=== PATIENT | male | born 1970 ===

== ENCOUNTER → 2025-01-01 10:10 | Outpatient (REF) | payer BC, SELFPAY | LOC: RAD 10:10 | PROVIDERS: ATTENDING PHYSICIAN Student in an Organized Health Care Education/Training Program; FAMILY PHYSICIAN Family Medicine | DX: L40.9 Psoriasis, unspecified (principal); M25.649 Stiffness of unspecified hand, not elsewhere classified; M79.641 Pain in right hand | CPT/HCPCS: 73120 ==